=== PATIENT | male | born 1970 | race Caucasian/White ===

== ENCOUNTER 2017-02-25 16:55 | Emergency (ER) | payer MEDICARE, OTHER ==
[2017-02-25 19:01] LABS: BASO % 0.3 % (0.0-2.0); EOS # 0.2 K/uL (0.0-0.7); EOS % 2.3 % (0.0-4.0); HEMATOCRIT 45.7 % (35.0-51.0); LYMPH # 1.8 K/uL (1.0-4.3); LYMPH % 25.2 % (20.0-40.0); MEAN CELL VOLUME 84.8 fL (80.0-94.0); MEAN CORPUSCULAR HEMOGLOBIN 28.3 pg (27.0-31.0); MEAN CORPUSCULAR HGB CONC 33.4 g/dL (33.0-37.0); MEAN PLATELET VOLUME 9.8 fL (7.2-11.7); MONO # 0.6 K/uL (0.0-0.8); MONO % 8.4 % (0.0-10.0); RED CELL DISTRIBUTION WIDTH 13.9 % (11.5-14.5); WHITE BLOOD COUNT 7.1 K/uL (4.8-10.8)
[2017-02-25 19:08] LABS: CHLORIDE 95 mmol/L (98-107); POTASSIUM 4.1 mmol/L (3.6-5.2); SODIUM 138 mmol/L (132-148)
[2017-02-25 19:10] LABS: ALB/GLOB RATIO 1.3 (1.0-2.1); ALKALINE PHOSPHATASE 101 U/L (38-126); AST/SGOT 40 U/L (17-59); BILIRUBIN,TOTAL 1.2 mg/dL (0.2-1.3); CARBON DIOXIDE 27 mmol/L (22-30); GFR AFRICAN-AMERICAN > 60; TOTAL PROTEIN 8.1 g/dL (6.3-8.3)
[2017-02-25 19:11] LABS: ALT/SGPT 35 U/L (21-72); BLOOD UREA NITROGEN 24 mg/dL (9-20); CALCIUM 9.2 mg/dl (8.6-10.4); GLUCOSE,RANDOM 80 mg/dL (75-110)
[2017-02-25] MEDS ORDERED: Iodixanol 320 MG/ML 100 ML BOTTLE IV ONE (20:18)
--- NOTE | 2017-02-25 21:08 | C.PDOC ---
History Of Present Illness 46 year old male presents to the ED with complaints of positionally reproducible pain to his left upper chest for the past week. Patient notes he has to move things for work and denies trauma, SOB, rash, or any other complaints at this time. Time Seen by Provider: 02/25/17 17:53 Chief Complaint (Nursing): Chest Pain History Per: Patient History/Exam Limitations: no limitations Onset/Duration Of Symptoms: Days Current Symptoms Are (Timing): Still Present Severity: Mild Associated Symptoms: denies: Nausea, Dyspnea, Diaphoresis Past Medical History Reviewed: Historical Data, Nursing Documentation, Vital Signs Vital Signs: Last Vital Signs Temp 97.9 F 02/25/17 21:11 Pulse 71 02/25/17 21:11 Resp 19 02/25/17 21:11 BP 111/71 02/25/17 21:11 Pulse Ox 98 02/25/17 21:11 - Medical History PMH: No Chronic Diseases Family History: States: Unknown Family Hx - Social History Hx Tobacco Use: No Hx Alcohol Use: No Hx Substance Use: No - Immunization History Hx Tetanus Toxoid Vaccination: No Hx Influenza Vaccination: Yes Hx Pneumococcal Vaccination: No Review Of Systems Except As Marked, All Systems Reviewed And Found Negative. Constitutional: Negative for: Fever, Chills Cardiovascular: Negative for: Palpitations Respiratory: Negative for: Shortness of Breath Musculoskeletal: Positive for: Other (+Positionally reproducible pain to left upper chest) Skin: Negative for: Rash Physical Exam - Physical Exam Appears: Non-toxic, No Acute Distress Skin: Normal Color, Warm, Dry, No Rash Head: Atraumatic, Normacephalic Eye(s): bilateral: Normal Inspection Oral Mucosa: Moist Chest: Symmetrical, No Deformity, Tenderness (+Positionally reproducible discomfort to the left upper chest) Cardiovascular: Rhythm Regular Respiratory: Normal Breath Sounds, No Accessory Muscle Use, No Rales, No Rhonchi , No Wheezing Extremity: Normal ROM Neurological/Psych: Oriented x3, Normal Speech, Normal Cognition ED Course And Treatment - Laboratory Results Result Diagrams: 02/25/17 18:54 02/25/17 18:54 Lab Interpretation: Normal (trop neg, d-doimer 590 H) ECG: Interpreted By De ECG Rhythm: Sinus Rhythm ECG Interpretation: Normal Rate From EC O2 Sat by Pulse Oximetry: 97 (Room air) Pulse Ox Interpretation: Normal - Radiology CXR: Interpreted by Me CXR Interpretation: Yes: No Acute Disease - Other Rad CTA r/o PE X-Ray: Read By Radiologist (neg) Progress Note: CTA Chest, CXR, EKG, and Blood work ordered and reviewed. patient treated with Motrin, Reevaluation Time: 21:07 Reassessment Condition: Improved Medical Decision Making Medical Decision Making: costochondritis vs muscular L upper chest discomfort. normal labs except for mild elevated d-dimer. CTA neg. reassured. Disposition Doctor Will See Patient In The: Office Counseled Patient/Family Regarding: Studies Performed, Diagnosis - Disposition Referrals: Vikki Cody MD [Staff Provider] - Disposition: HOME/ ROUTINE Disposition Time: 21:07 Condition: GOOD Additional Instructions: no levanta nada pesada por 1 semana Ibuprofeno 600 mg cada 6 horas eamon necessario Sigue con el medico eamon necessario. Instructions: Costochondritis (ED), Thoracic Pain (ED) Print Language: KENYAN - Clinical Impression Clinical Impression: Chest discomfort - Scribe Statement The provider has reviewed the documentation as recorded by the Scribe Vasyl Ventura. Provider Attestation: All medical record entries made by the Scribe were at my direction and personally dictated by me. I have reviewed the chart and agree that the record accurately reflects my personal performance of the history, physical exam, medical decision making, and the department course for this patient. I have also personally directed, reviewed, and agree with the discharge instructions and disposition.
[2017-02-25 21:12] VITALS: BP 111/71; PULSE 71; RESP 19; TEMP 97.9
[2017-02-25 21:57] VITALS: O2SAT 97
--- NOTE | 2017-02-26 07:54 | RAD ---
PROCEDURE: CHEST RADIOGRAPH, 1 VIEW HISTORY: chest pain COMPARISON: None available. FINDINGS: LUNGS: No focal infiltrate or effusion. PLEURA: No pneumothorax or pleural fluid seen. CARDIOVASCULAR: Normal. OSSEOUS STRUCTURES: No significant abnormalities. VISUALIZED UPPER ABDOMEN: Normal. OTHER FINDINGS: None. IMPRESSION: No active disease.
--- NOTE | 2017-02-26 08:09 | CT ---
PROCEDURE: CT Chest with contrast (Pulmonary Angiogram) HISTORY: Left upper chest discomfort x 1 week COMPARISON: None available. TECHNIQUE: Axial computed tomography images were obtained of the chest in the pulmonary arterial phase of enhancement. Coronal and sagittal reformatted images were created and reviewed. Radiation dose: Total exam DLP = 517 mGy-cm. This CT exam was performed using one or more of the following dose reduction techniques: Automated exposure control, adjustment of the mA and/or kV according to patient size, and/or use of iterative reconstruction technique. FINDINGS: PULMONARY ARTERIES: Unremarkable. No pulmonary embolism. AORTA: No acute findings. No thoracic aortic aneurysm. LUNGS: Atelectasis in the posterior lungs. PLEURAL SPACES: Unremarkable. No effusion or pneuomothorax. HEART: Unremarkable. No cardiomegaly. No significant pericardial effusion. LYMPH NODES: No lymphadenopathy. BONES, CHEST WALL: Unremarkable. No fracture or destructive lesion OTHER FINDINGS: Unremarkable. IMPRESSION: No acute pulmonary embolism. Atelectasis in the posterior lungs. These findings were preliminarily reported at 8:[address] Ender Golden from [facility] radiologic.
--- NOTE | 2017-03-02 13:53 | CARD ---
APPROVED REPORT EKG Measurement Heart [id number] <Conclusion> Normal sinus rhythm Normal ECG
== END 2017-02-25 21:14 | disposition home or self-care (01) ==
LOC: C.ER 16:55
DX: R07.89 Other chest pain (principal)
CPT/HCPCS: 71010; 71275; 80053; 84484; 85025; 85378; 99285; Q9967

== ENCOUNTER 2019-03-31 15:23 | Emergency (ER) | payer MEDICARE, OTHER ==
[2019-03-31 15:30] VITALS: BP 115/76; PULSE 95; RESP 20; TEMP 98.9; O2SAT 97
--- NOTE | 2019-03-31 15:57 | C.PDOC ---
History Of Present Illness 49 year old male presents to the emergency department with complaints of swelling to the right knee. Patient has a history of right knee injury several years ago with partially torn ligament. Patient has occasional arthrocentesis for excessive joint fluid. Patient denies pain or difficulty upon flexion of the knee. Time Seen by Provider: 03/31/19 15:31 Chief Complaint (Nursing): Lower Extremity Problem/Injury History Per: Patient History/Exam Limitations: no limitations Onset/Duration Of Symptoms: Hrs Current Symptoms Are (Timing): Still Present - Knee Description Of Injury: Other (swelling) Past Medical History Reviewed: Historical Data, Nursing Documentation, Vital Signs Vital Signs: Last Vital Signs Temp 98.9 F 03/31/19 15:26 Pulse 95 H 03/31/19 15:26 Resp 20 03/31/19 15:26 BP 115/76 03/31/19 15:26 Pulse Ox 97 03/31/19 15:26 Primary Care Provider: Vikki Cody - Medical History PMH: Hypercholesterolemia Surgical History: No Surg Hx Family History: States: No Known Family Hx - Social History Hx Tobacco Use: No Hx Alcohol Use: No Hx Substance Use: No - Immunization History Hx Tetanus Toxoid Vaccination: No Hx Influenza Vaccination: No Hx Pneumococcal Vaccination: No Review Of Systems Except As Marked, All Systems Reviewed And Found Negative. Constitutional: Negative for: Fever, Chills Cardiovascular: Negative for: Chest Pain Respiratory: Negative for: Cough, Shortness of Breath Gastrointestinal: Negative for: Nausea, Vomiting, Abdominal Pain Genitourinary: Negative for: Dysuria Musculoskeletal: Positive for: Leg Pain (knee swelling) Neurological: Negative for: Weakness, Numbness Physical Exam - Physical Exam Appears: Non-toxic, No Acute Distress, Other ( male) Skin: Normal Color, Warm, Dry Head: Atraumatic, Normacephalic Eye(s): bilateral: Normal Inspection, PERRL, EOMI Nose: Normal Oral Mucosa: Moist Neck: Normal, Supple Cardiovascular: Rhythm Regular, No Murmur Respiratory: Normal Breath Sounds, No Rales, No Rhonchi, No Wheezing Extremity: Normal ROM, No Tenderness, Other (effusion to the right knee, NO erythema, NO laxity ) Neurological/Psych: Oriented x3, Normal Speech, Normal Cognition ED Course And Treatment O2 Sat by Pulse Oximetry: 97 (RA) Pulse Ox Interpretation: Normal Medical Decision Making Medical Decision Making: occasional R knee effusion MRI R knee with multiple sub-acute injuries from 2015 clinically stable knee "gives out a little once a year, and that's it" Defer theraputic tap for minimal effusion and risk of infection Ice and NSAIDS educated opt f/u for Ortho and f/u CT/MRI of R knee PRN Plan: Motrin 600mg PO Disposition Doctor Will See Patient In The: Office Counseled Patient/Family Regarding: Studies Performed, Diagnosis - Disposition Referrals: Wilton Wilson MD [Staff Provider] - Vikki Cody MD [Staff Provider] - Disposition: HOME/ ROUTINE Disposition Time: 15:57 Condition: GOOD Additional Instructions: sigue Ibuprofeno 400-600 mg cada 6 horas eamon necessario [facility] Dr. Cody te puede katelyn hacer MRI del donald allan Sigue con el Orthopedico eamon necessario- Dr. Katie Ott noguera oficina par hacer maranda. Instructions: Swollen Joints (DC) Forms: [employer] (Czech) - Clinical Impression Clinical Impression: Knee effusion, right - Scribe Statement The provider has reviewed the documentation as recorded by the Scribe (Gino Gonzales) Provider Attestation: All medical record entries made by the Scribe were at my direction and personally dictated by me. I have reviewed the chart and agree that the record accurately reflects my personal performance of the history, physical exam, medical decision making, and the department course for this patient. I have also personally directed, reviewed, and agree with the discharge instructions and disposition.
== END 2019-03-31 16:02 | disposition home or self-care (01) ==
LOC: C.ER 15:23
DX: M25.461 Effusion, right knee (principal); E78.00 Pure hypercholesterolemia, unspecified

== ENCOUNTER 2019-04-07 07:05 | Emergency (ER) | payer MEDICARE, OTHER ==
[2019-04-07 07:26] VITALS: RESP 12; TEMP 98.1
[2019-04-07 07:44] LABS: BASO % 0.3 % (0.0-2.0); EOS # 0.4 K/uL (0.0-0.7); HEMOGLOBIN 14.8 g/dL (12.0-18.0); LYMPH # 1.4 K/uL (1.0-4.3); MEAN CELL VOLUME 85.7 fL (80.0-94.0); MEAN CORPUSCULAR HEMOGLOBIN 29.3 pg (27.0-31.0); MEAN CORPUSCULAR HGB CONC 34.2 g/dL (33.0-37.0); MEAN PLATELET VOLUME 9.4 fL (7.2-11.7); MONO # 0.5 K/uL (0.0-0.8); MONO % 9.1 % (0.0-10.0); NEUT # 3.6 K/uL (1.8-7.0); NEUT % 60.6 % (50.0-75.0); RBC 5.05 Mil/uL (4.40-5.90); RED CELL DISTRIBUTION WIDTH 13.9 % (11.5-14.5); WHITE BLOOD COUNT 5.9 K/uL (4.8-10.8)
[2019-04-07 08:13] LABS: ALB/GLOB RATIO 1.2 (1.0-2.1); ALBUMIN 4.3 g/dL (3.5-5.0); ALT/SGPT 34 U/L (21-72); AST/SGOT 41 U/L (17-59); BLOOD UREA NITROGEN 20 mg/dL (9-20); CALCIUM 9.1 mg/dl (8.6-10.4); CK-MB 2.48 ng/mL (0.0-3.38); GFR NON-AFRICAN AMERICAN 54
--- NOTE | 2019-04-07 08:56 | RAD ---
HISTORY: syncope COMPARISON: Chest x-ray performed 02/25/17 TECHNIQUE: Chest, one view. FINDINGS: LUNGS: Hypoinflation. Mild to moderate venous congestion. Central vascular prominence. No focal consolidation. Please note that chest x-ray has limited sensitivity for the detection of pulmonary masses. PLEURA: No significant pleural effusion identified. No definite pneumothorax . CARDIOVASCULAR: Heart size appears top normal. Aortic ectasia. OSSEOUS STRUCTURES: No acute osseous abnormality identified. VISUALIZED UPPER ABDOMEN: Unremarkable. OTHER FINDINGS: None. IMPRESSION: Hypoinflation. Mild to moderate venous congestion. Central vascular prominence.
--- NOTE | 2019-04-07 09:25 | CT ---
Date of service: 04/07/2019 PROCEDURE: CT HEAD WITHOUT CONTRAST. HISTORY: SYNCOPE COMPARISON: None available. TECHNIQUE: Axial computed tomography images were obtained through the head/brain without intravenous contrast. Radiation dose: Total exam DLP = 1098.2 mGy-cm. This CT exam was performed using one or more of the following dose reduction techniques: Automated exposure control, adjustment of the mA and/or kV according to patient size, and/or use of iterative reconstruction technique. FINDINGS: HEMORRHAGE: No intracranial hemorrhage. BRAIN: No mass effect or edema. No atrophy or chronic microvascular ischemic changes. VENTRICLES: No hydrocephalus. CALVARIUM: Unremarkable. PARANASAL SINUSES: Unremarkable as visualized. No significant inflammatory changes. MASTOID AIR CELLS: Unremarkable as visualized. No inflammatory changes. OTHER FINDINGS: None. IMPRESSION: No acute intracranial pathology identified.
[2019-04-07 09:49] VITALS: BP 106/66; PULSE 58; O2SAT 97
--- NOTE | 2019-04-07 10:24 | C.PDOC ---
History Of Present Illness 49 y/o male presents to ED stating he woke up around 5:40am and sat up in bed feeling lightheaded and passed out. States he woke up and it was 20 minutes later. He reports having a brief episode of chest pain. Denies prior syncope or current headache, dizziness, palpitations, or SOB. Patient has PMHx of hyperlipidemia and his primary doctor is Dr. Lien Mclean. Time Seen by Provider: 04/07/19 07:25 Chief Complaint (Nursing): Chest Pain History Per: Patient History/Exam Limitations: no limitations Onset/Duration Of Symptoms: Hrs Current Symptoms Are (Timing): Still Present Past Medical History Reviewed: Historical Data, Nursing Documentation, Vital Signs Vital Signs: Last Vital Signs Temp 98.1 F 04/07/19 07:10 Pulse 58 L 04/07/19 09:47 Resp 12 04/07/19 09:47 BP 106/66 04/07/19 09:47 Pulse Ox 97 04/07/19 09:47 Primary Care Provider: Vikki Mclean - Medical History PMH: Hypercholesterolemia Family History: States: No Known Family Hx - Social History Hx Tobacco Use: No Hx Alcohol Use: No Hx Substance Use: No - Immunization History Hx Tetanus Toxoid Vaccination: No Hx Influenza Vaccination: No Hx Pneumococcal Vaccination: No Review Of Systems Constitutional: Negative for: Fever, Chills, Sweats Cardiovascular: Positive for: Chest Pain. Negative for: Palpitations Respiratory: Negative for: Cough, Shortness of Breath Gastrointestinal: Negative for: Nausea, Vomiting Neurological: Negative for: Weakness, Numbness, Headache, Dizziness Physical Exam - Physical Exam Appears: Non-toxic, No Acute Distress Skin: Warm, Dry Head: Normacephalic Eye(s): bilateral: Normal Inspection, PERRL Oral Mucosa: Moist Neck: Supple Cardiovascular: Rhythm Regular, No Murmur Respiratory: Normal Breath Sounds, No Rales, No Rhonchi, No Wheezing Gastrointestinal/Abdominal: Soft, No Tenderness Extremity: Bilateral: Atraumatic, Normal ROM Neurological/Psych: Oriented x3, Normal Speech ED Course And Treatment - Laboratory Results Result Diagrams: 04/07/19 07:41 04/07/19 07:41 Lab Results: D-Dimer, Quantitative < 200 ng/mlDDU (0-243) 04/07/19 07:41 Troponin I < 0.0120 ng/mL (0.00-0.120) 04/07/19 07:41 Total Bilirubin 0.6 mg/dL (0.2-1.3) 04/07/19 07:41 AST 41 U/L (17-59) 04/07/19 07:41 ALT 34 U/L (21-72) 04/07/19 07:41 Alkaline Phosphatase 104 U/L (38-126) 04/07/19 07:41 Total Protein 7.9 g/dL (6.3-8.3) 04/07/19 07:41 Albumin 4.3 g/dL (3.5-5.0) 04/07/19 07:41 Globulin 3.6 gm/dL (2.2-3.9) 04/07/19 07:41 Albumin/Globulin Ratio 1.2 (1.0-2.1) 04/07/19 07:41 ECG: Interpreted By Me, Viewed By Me ECG Rhythm: Sinus Rhythm ECG Interpretation: Normal Interpretation Of ECG: Normal axis. No acute ST/T wave changes. Rate From EC O2 Sat by Pulse Oximetry: 97 (RA) Pulse Ox Interpretation: Normal - Other Rad CXR X-Ray: Read By Radiologist Interpretation: FINDINGS: LUNGS: Hypoinflation. Mild to moderate venous congestion. Central vascular prominence. No focal consolidation. Please note that chest x-ray has limited sensitivity for the detection of pulmonary masses. PLEURA: No significant pleural effusion identified. No definite pneumothorax . CARDIOVASCULAR: Heart size appears top normal. Aortic ectasia. OSSEOUS STRUCTURES: No acute osseous abnormality identified. VISUALIZED UPPER ABDOMEN: Unremarkable. OTHER FINDINGS: None. IMPRESSION: Hypoinflation. Mild to moderate venous congestion. Central vascular prominence. - CT Scan/US Head CT Other Rad Studies (CT/US): Read By Radiologist, Radiology Report Reviewed CT/US Interpretation: FINDINGS: HEMORRHAGE: No intracranial hemorrhage. BRAIN: No mass effect or edema. No atrophy or chronic microvascular ischemic changes. VENTRICLES: No hydrocephalus. CALVARIUM: Unremarkable. PARANASAL SINUSES: Unremarkable as visualized. No significant inflammatory changes. MASTOID AIR CELLS: Unremarkable as visualized. No inflammatory changes. OTHER FINDINGS: None. IMPRESSION: No acute intracranial pathology identified. Progress Note: Head CT and chest XR ordered. Labs ordered and reviewed. Disposition Counseled Patient/Family Regarding: Studies Performed, Diagnosis, Need For Followup - Disposition Referrals: Vikki Mclean MD [Staff Provider] - Disposition: HOME/ ROUTINE Disposition Time: 10:25 Condition: STABLE Additional Instructions: FOLLOW UP WITH DR Lien MCLEAN IN 1-2 DAYS RETURN TO ER IF SYMPTOMS WORSEN Instructions: Syncope (Fainting) (DC) Forms: [facility] (Irish) Print Language: AMHARIC - Clinical Impression Clinical Impression: Syncope
== END 2019-04-07 10:39 | disposition home or self-care (01) ==
LOC: C.ER 07:05
DX: R55 Syncope and collapse (principal)